=== PATIENT | female | born 1980 | race Caucasian/White ===

== ENCOUNTER → 2017-03-31 | Day surgery (SDC) | payer OTHER ==
--- NOTE | 2017-04-03 11:13 | PATH ---
Surgical Pathology Report Patient Name: SEJAL RUTHERFORD [facility]. Rec. #: [id number] /Age/Gender: 1980 (Age: 37) / F Account: [id number] Location: [facility]IOLOGY [facility] Taken: 03/31/2017 Received: 03/31/2017 Reported: 04/03/2017 Physicians: Liam Shin Specimen(s) Received RIGHT BREAST CORE BIOPSY 9-10 Clinical History Nonpalpable lesion, right breast 9-10 o'clock position, 1.28 cm ovoid mass Ultrasound findings: Probably benign Final Diagnosis RIGHT BREAST, 9:00-10:00, ULTRASOUND GUIDED NEEDLE CORE BIOPSY: FIBROADENOMA. Electronically Signed Сергей Ray M.D. Gross Description Received in formalin labeled "right 9:30,"are 5 terrell-yellow, cylindrical portions of fibroadipose tissue ranging from 0.9-1.3 cm in length and averaging 0.1 cm in diameter. The specimens are submitted in toto in one cassette. Time to formalin fixation: Less than one minute Total formalin fixation time: Approximately 8 hours. 03/31/201703/31/2017
== END | disposition home or self-care (01) ==
LOC: JRADUS-SUR 09:49
PROVIDERS: ATTEND Nurse Practitioner Family
PROC: 0HBT3ZX Excision of Right Breast, Percutaneous Approach, Diagnostic (ICD-10-PCS; principal; 2017-03-31)
DX: D24.1 Benign neoplasm of right breast (principal)
CPT/HCPCS: 19083; 87899; 88305-TC

== ENCOUNTER 2022-01-23 19:37 | Emergency (ER) | payer BC, OTHER ==
[2022-01-23 20:00] VITALS: BP 129/86; PULSE 81; RESP 19; TEMP 98.2; BMI 25.2
== END 2022-01-23 21:04 | disposition home or self-care (01) ==
LOC: JER 19:37 → JERFT 19:37
DX: R73.9 Hyperglycemia, unspecified (principal)
CPT/HCPCS: 82962; 99281-25